=== PATIENT | male | born 1965 | race Caucasian/White ===

== ENCOUNTER 2021-11-21 00:54 | Inpatient (IN) | payer OTHER ==
[2021-11-21] MEDS ORDERED: VERAPAMIL 2.5 MG/ML 2 ML AMP ONE ×2 (01:11→08:16)
[2021-11-21] MEDS ORDERED: IV FLUID CONTINUATION 1,000 ML IV ONE ×2 (01:13→08:30)
[2021-11-21] MEDS ORDERED: NITROGLYCERIN-D5W PMX 50 MG in DEXTROSE/WATER 1 250ML.BAG IV ONE (01:13)
--- NOTE | 2021-11-21 01:15 | P.CRDCN ---
History of Present Illness History of present illness: HISTORY OF PRESENTING ILLNESS This is a pleasant 56-year-old with past medical history significant for diabetes mellitus type 2, family history of mother with coronary artery disease, gout. He states normally is fairly healthy and exercises routinely. He had been feeling well and today started developing intermittent chest discomfort and some shortness breath. He felt this was related to having done a workout and was not that significant and intermittent. Around 10 PM patient had more consistent left arm pain which then radiated to his chest and therefore presented to [facility] was found to have inferior ST elevation. Given prolonged expected transportation, TPA was given. Patient still having chest pain until approximately 10 minutes before arrival and therefore catheterization lab had been activated. Patient denies any similar discomfort in the past. No tobacco. Occasional Alcohol no illicit drugs. Blood pressure on presentation at [facility] was extremely elevated in the 200/100 range however normally in the 130s systolic. DIAGNOSTICS EKG showed sinus rhythm with borderline Q waves inferiorly with ST elevation. REVIEW OF SYSTEMS At the time of my exam: CONSTITUTIONAL: Denies fever or chills. CARDIOVASCULAR: +chest pain, +shortness of breath, no orthopnea, PND or palpitations. RESPIRATORY: Denies cough. GASTROINTESTINAL: Denies abdominal pain, diarrhea, constipation, nausea or vomiting. MUSCULOSKELETAL: Denies myalgias. NEUROLOGIC: Denies numbness, tingling or weakness. ENDOCRINE: Denies fatigue, weight change, polydipsia or polyurina. GENITOURINARY: Denies burning, hematuria or urgency with micturation. HEMATOLOGIC: Denies history of anemia or bleeding. PHYSICAL EXAMINATION Vital signs reviewed. CONSTITUTIONAL: No apparent distress. HEENT: Head is normocephalic. Pupils are equal, round. Sclerae anicteric. Mucous membranes of the mouth are moist. No JVD. No carotid bruit. CHEST EXAMINATION: Lungs are clear to auscultation. No chest wall tenderness is noted on palpation or with deep breathing. HEART EXAMINATION: Regular rate and rhythm. S1, S2 heard. No murmurs, gallops or rub. ABDOMEN: Soft, nontender. Positive bowel sounds. EXTREMITIES: 2+ peripheral pulses, no lower extremity edema and no calf tenderness. NEUROLOGIC EXAMINATION: Patient is awake, alert and oriented x3. ASSESSMENT 1. Inferior ST elevation [place], status post TPA 2. Diabetes mellitus type 2 3. Extreme hypertension on arrival 4. Hyperlipidemia PLAN Patient is status post TPA and improvement in chest pain. Discussed recommendations for heart catheterization and patient is agreeable. Heparin drip, aspirin. Check 2-D echo. Further recommendations to follow.
[2021-11-21] MEDS ORDERED: HEPARIN SODIUM 1,000 UN/ML (10ML VL) ONE ×2 (01:26→08:44)
[2021-11-21] MEDS ORDERED: fentaNYL (PF) 50 MCG/ML 2 ML AMP ONE ×2 (01:26→08:27)
[2021-11-21] MEDS ORDERED: LIDOCAINE 1% INJ 10MG/ML (30 ML VIAL-PF) SQ ONE (01:28)
[2021-11-21] MEDS ORDERED: fentaNYL (PF) 50 MCG/ML 2 ML AMP IV ONE (01:28)
[2021-11-21] MEDS ORDERED: MIDAZOLAM 2 MG/2 ML VIAL IV ONE (01:28)
[2021-11-21] MEDS ORDERED: VERAPAMIL SYRINGE (5 MG/10 ML) INTRAARTER ONE ×2 (01:30→08:36)
[2021-11-21] MEDS: HEPARIN SODIUM 1,000 UN/ML (10ML VL) IV ONE ×4 (01:37→09:10)
--- NOTE | 2021-11-21 01:45 | XR ---
EXAMINATION TYPE: XR chest 1V DATE OF EXAM: 11/21/2021 COMPARISON: NONE HISTORY: Chest pain TECHNIQUE: Single view FINDINGS: Heart and mediastinum are normal. Lungs are clear. Diaphragm is normal. Bony thorax appears normal. IMPRESSION: Normal chest.
[2021-11-21] MEDS ORDERED: hydrALAZINE HCL 20 MG/ML 1 ML VIAL ONE (01:55)
[2021-11-21] MEDS: hydrALAZINE HCL 20 MG/ML 1 ML VIAL IV ONE ×2 (01:56→02:10)
[2021-11-21] MEDS ORDERED: niCARdipine 25 MG/10 ML VIAL ONE (02:03)
[2021-11-21] MEDS ORDERED: TICAGRELOR 90 MG TAB ONE (02:06)
--- NOTE | 2021-11-21 02:10 | ED ---
Chest Pain HPI - General Chief Complaint: Chest Pain Stated Complaint: STEMI Time Seen by Provider: 11/21/21 00:58 Source: EMS Mode of arrival: EMS Limitations: no limitations - History of Present Illness Initial Comments: This patient is a 56-year-old man transferred here from [facility] for cardiology evaluation and treatment. The patient states that he had gone there related to chest pain that had come on around 10 PM tonight. He indicates the pain in the substernal and left chest areas. There is radiation of the pain to left arm. He describes as being tight feeling. No worsening or relieving factors. At the other facility, the patient was reportedly found to have inferior ST elevations. Given the transfer times from the hospital here patient is given TNKase. The patient's EKG showed persistent ST elevations and therefore English Tutor activated. He does note that his pain had some improvement just prior to arrival here. MD Complaint: chest pain -: hour(s) Onset: during rest Pain Location: left chest Pain Radiation: LUE Severity: moderate Quality: tightness Consistency: constant Improves With: nothing Worsens With: nothing Treatments Prior to Arrival: aspirin, other - Related Data Allergies Allergy/AdvReac Type Severity Reaction Status Date / Time Penicillins Allergy Unknown Unknown Verified 11/21/21 01:48 Review of Systems ROS Statement: Those systems with pertinent positive or pertinent negative responses have been documented in the HPI. ROS Other: All systems not noted in ROS Statement are negative. Constitutional: Denies: fever, chills, weakness Respiratory: Denies: cough, dyspnea, hemoptysis Cardiovascular: Reports: chest pain. Denies: palpitations, orthopnea, edema, syncope Gastrointestinal: Reports: nausea. Denies: abdominal pain, vomiting, diarrhea Genitourinary: Denies: dysuria, hematuria Musculoskeletal: Denies: back pain Skin: Denies: rash Neurological: Denies: headache, weakness, numbness Psychiatric: Denies: anxiety EKG Findings - EKG Results: EKG: interpreted by RAUL, sinus rhythm, normal axis - Dysrhythmias: Sinus rhythms and dysrhythmias: sinus rhythm - HI, Pacemaker, Normal: Myocardial infarction: inferior HI (acute or recent) Past Medical History Additional Past Medical History / Comment(s): Hyperlipidemia History of Any Multi-Drug Resistant Organisms: None Reported Past Psychological History: No Psychological Hx Reported Smoking Status: Never smoker Past Alcohol Use History: Occasional Past Drug Use History: None Reported General Exam Limitations: no limitations General appearance: alert Head exam: Present: atraumatic, normocephalic Eye exam: Present: normal appearance. Absent: scleral icterus, conjunctival injection Neck exam: Present: normal inspection Respiratory exam: Present: normal lung sounds bilaterally. Absent: respiratory distress, wheezes, rales, rhonchi, stridor, chest wall tenderness, accessory muscle use Cardiovascular Exam: Present: regular rate, normal rhythm, normal heart sounds. Absent: systolic murmur, diastolic murmur, rubs, gallop GI/Abdominal exam: Present: soft. Absent: distended, tenderness, guarding, rebound, rigid, mass Extremities exam: Present: normal inspection, normal capillary refill. Absent: pedal edema, calf tenderness Back exam: Present: normal inspection. Absent: CVA tenderness (R), CVA tenderness (L) Neurological exam: Present: alert Skin exam: Present: warm, dry, intact, normal color. Absent: rash Course Vital Signs 11/21/21 01:38 Temperature 98 F Pulse Rate 88 Respiratory 20 Rate Blood Pressure 179/100 O2 Sat by Pulse 96 Oximetry Procedures - [place] Protocol (Time Out) Patient Identification (2 identifiers required): Arm Band, Name Patient/Legal Feeder Catcher Tobacco has Confirmed: Identity, Procedure, Consent Site Marked: Yes Critical Care Time Critical Care Time: Yes (30 minutes) Disposition Clinical Impression: ST elevation myocardial infarction (STEMI) Disposition: ADMITTED IP TO THIS HOSP Condition: Serious Is patient prescribed a controlled substance at d/c from ED?: No
[2021-11-21] MEDS ORDERED: IOPAMIDOL-370 125ML BTL INJ ONE ×2 (02:11→09:14)
[2021-11-21] MEDS ORDERED: TICAGRELOR 90 MG TAB PO ONE (02:11)
[2021-11-21] MEDS ORDERED: HEPARIN SODIUM 1,000 UN/ML (10ML VL) IV ONE ×2 (02:16→07:41)
[2021-11-21] MEDS ORDERED: ATROPINE SULFATE 0.1 MG/ML 10ML SYRINGE IV PRN (02:24)
[2021-11-21] MEDS ORDERED: RX INFO: IV CONTRAST WAS GIVEN 1 EACH MISC MISCELLANE PRN (02:24)
[2021-11-21] MEDS ORDERED: MAG HYDROX/AL HYDROX/SIMETH 30 ML CUP PO PRN (02:24)
[2021-11-21] MEDS ORDERED: ZOLPIDEM 5 MG TAB PO PRN (02:24)
--- NOTE | 2021-11-21 02:24 | P.PRCINT ---
Percutaneous Coronary Int. - Percutaneous Coronary Intervention Percutaneous Coronary Intervention: PROCEDURES PERFORMED: Left heart catheterization, bilateral coronary angiography, PCI proximal to mid RCA with overlapping 3.5 x 30 mm and 3.5 x 15 mm Xience CHUCHO, post dilated with a 4.0 NC balloon INDICATION: STEMI HISTORY: Patient is a pleasant 56-year-old male with history of diabetes mellitus type 2 who presented with chest pain to [facility] and was found to have inferior ST elevation. Given anticipated prolonged transportation TPA was given. By time he presented to ER he had improvement in chest pain with some Q waves inferiorly. Heart catheterization was recommended. CONSENT:I have discussed the risks, benefits and alternative therapies for the above-mentioned procedure and for both sedation/analgesia as well as necessary blood product administration, if indicated, as they pertain to this patient. The patient has indicated understanding and acceptance of the risks and procedures discussed. PROCEDURE: After the risks, benefits and alternatives of the above mentioned procedure explained in detail with the patient, informed consent was obtained. Patient was taken to the catheterization lab and prepped and draped in usual fashion. 1% lidocaine was used to anesthetize the right radial artery. A 6- [place] sheath was placed in the right radial artery using modified Seldinger technique. Left coronary angiography was performed with a 5-[place] JL 3.5 catheter and right coronary angiography was performed with a 5-[place] JR5 catheter in various views. A 5-[place] FR5 catheter was inserted into the left ventricle and pressure measurements were obtained. The decision was made to perform PCI of the RCA. A 6-[place] AL 0.75 guide was used to engage the RCA. A 0.014 BMW wire was attempted to be advanced however some difficulty and therefore a 0.014 was per wire was advanced into the distal RCA. Predilation was performed with a 2.5 x 12 mm balloon. Next a 3.5 x 15 mm Xience CHUCHO was placed in the mid RCA. There is diffuse disease of the proximal to mid RCA as well and therefore an additional 3.5 x 38 mm Xience CHUCHO was used to cover the entire area. Both stents were postdilated with a 4.0 x 12 mm Xience CHUCHO. Final angiograms were performed. Preintervention there is 99% stenosis and KYLE 2 flow and postintervention there was 0% stenosis and KYLE-3 flow. The right radial sheath was removed and a TR band was placed with hemostasis achieved. The patient tolerated the procedure well. Patient was transported back to the post catheterization holding area in stable condition. Conscious Sedation: Patient was monitored under the direct supervision of vision of myself for conscious sedation using Versed and fentanyl for a total duration of 43 minutes HEMODYNAMICS: Aorta: 187/98 LV: 193/14, LVEDP 26mmHg SELECTIVE CORONARY ARTERIOGRAPHY: LEFT MAIN: The left main is a large caliber vessel which bifurcates into the LAD and circumflex. There is no significant stenosis. LEFT ANTERIOR DESCENDING CORONARY ARTERY: LAD is a large caliber vessel which wraps around to the apex. There is diffuse mild 20-30% stenosis. There is a moderate to large caliber diagonal 1 branch. LEFT CIRCUMFLEX CORONARY ARTERY: Left circumflex is a moderate caliber vessel with diffuse 20-30% stenosis. RIGHT CORONARY ARTERY: The right coronary artery is a large caliber vessel which gives off a PDA and PLV branch and is the dominant vessel. There is diffuse proximal 75% stenosis, proximal mid 40% and a mid RCA focal 99% stenosis with thrombus burden. FINAL IMPRESSION: 1. CAD as described above including 20-30% LAD, 20-30% circumflex and RCA 99% stenosis 2. S/p PCI proximal to mid RCA with overlapping 3.5 x 30 mm and 3.5 x 15 mm Xience CHUCHO, post dilated with a 4.0 NC balloon 3. Elevated left sided filling pressures PLAN: 1. Aggressive risk factor modification per most recent ACC/AHA guidelines. 2. Continue dual antiplatelets for 12 months with aspirin and Brillinta.
[2021-11-21] MEDS ORDERED: hydrALAZINE HCL 20 MG/ML 1 ML VIAL IVP PRN (02:32)
[2021-11-21 02:45] LABS: Glucose,Whole Blood 207 mg/dL (70-110)
[2021-11-21] MEDS: SODIUM CHLORIDE 0.9% 1,000 ML in EMPTY BAG 1 BAG IV SCH ×2 (03:28→08:05)
[2021-11-21] MEDS: NITROGLYCERIN SL TABS 0.4 MG TAB SUBLINGUAL PRN ×2 (07:06→07:19)
[2021-11-21] MEDS ORDERED: HEPARIN SODIUM 1,000 UN/ML (10ML VL) IVP STA (07:07)
[2021-11-21] MEDS ORDERED: ONDANSETRON 4 MG/2 ML VIAL IVP PRN (07:15)
[2021-11-21] MEDS ORDERED: HEPARIN SODIUM 1,000 UN/ML (10ML VL) IV PRN (07:41)
--- NOTE | 2021-11-21 07:42 | P.PN ---
Subjective HISTORY OF PRESENTING ILLNESS This is a pleasant 56-year-old with past medical history significant for diabetes mellitus type 2, family history of mother with coronary artery disease, gout. He states normally is fairly healthy and exercises routinely. He had been feeling well and today started developing intermittent chest discomfort and some shortness breath. He felt this was related to having done a workout and was not that significant and intermittent. Around 10 PM patient had more consistent left arm pain which then radiated to his chest and therefore presented to [facility] was found to have inferior ST elevation. Given prolonged expected transportation, TPA was given. Patient still having chest pain until approximately 10 minutes before arrival and therefore catheterization lab had been activated. Patient denies any similar discomfort in the past. No tobacco. Occasional Alcohol no illicit drugs. Blood pressure on presentation at [facility] was extremely elevated in the 200/100 range however normally in the 130s systolic. 11/21 Underwent heart catheterization with stenting of the RCA. He was feeling fine until approximately 7 AM when he started having more arm discomfort and chest pain similar to prior. Improved with nitro. Some nausea. PHYSICAL EXAMINATION Vital signs reviewed. CONSTITUTIONAL: No apparent distress. HEENT: Head is normocephalic. Pupils are equal, round. Sclerae anicteric. Mucous membranes of the mouth are moist. No JVD. No carotid bruit. CHEST EXAMINATION: Lungs are clear to auscultation. No chest wall tenderness is noted on palpation or with deep breathing. HEART EXAMINATION: Regular rate and rhythm. S1, S2 heard. No murmurs, gallops or rub. ABDOMEN: Soft, nontender. Positive bowel sounds. EXTREMITIES: 2+ peripheral pulses, no lower extremity edema and no calf tenderness. NEUROLOGIC EXAMINATION: Patient is awake, alert and oriented x3. ASSESSMENT 1. Inferior ST elevation [place], status post TPA 2. Diabetes mellitus type 2 3. Extreme hypertension on arrival 4. Hyperlipidemia 5. Recurrent chest pain after stenting concerning for stent thrombosis PLAN Patient having more chest pain this morning. Concern of possible stent thrombosis and therefore discussed heart catheterization. We will place patient on a heparin drip as well as nitro drip. Check 2-D echo. Further recommendations to follow. Objective - Vital Signs Vital signs: Vital Signs Temp 98.1 F 11/21/21 02:50 Pulse 105 H 11/21/21 07:15 Resp 10 L 11/21/21 07:15 BP 121/91 11/21/21 07:15 Pulse Ox 93 L 11/21/21 07:15 FiO2 Intake & Output 11/20/21 11/21/21 11/21/21 18:59 06:59 18:59 Intake Total 310 Output Total 925 200 Balance -615 -200 Weight 94.8 kg Intake: IV 310 Output: Urine 925 Emesis 200 Other: Voiding Method Urinal # Voids 0 - Labs Labs: Abnormal Lab Results - Last 24 Hours (Table) 11/21/21 Range/Units 02:43 POC Glucose (mg/dL) 207 H (70-110) mg/dL
[2021-11-21] MEDS: NITROGLYCERIN-D5W PMX 50 MG in DEXTROSE/WATER 1 250ML.BAG IV SCH (07:53)
[2021-11-21] MEDS: HEPARIN SOD,PORK IN 0.45% NACL 25,000 UNIT in 0.45% NACL 1 250ML.BAG IV SCH ×2 (07:54→23:01)
[2021-11-21] MEDS: ASPIRIN 81 MG PO SCH (08:05)
[2021-11-21] MEDS: lisinopriL 10 MG TAB PO SCH (08:13)
[2021-11-21] MEDS: TICAGRELOR 90 MG TAB PO SCH ×2 (08:13→20:09)
[2021-11-21] MEDS: METOPROLOL TARTRATE 25 MG TAB PO SCH ×2 (08:13→20:09)
[2021-11-21] MEDS ORDERED: fentaNYL (PF) 50 MCG/ML 2 ML AMP IVP ONE (08:35)
[2021-11-21] MEDS ORDERED: MIDAZOLAM 2 MG/2 ML VIAL IVP ONE (08:35)
[2021-11-21] MEDS ORDERED: LIDOCAINE 1% INJ 10MG/ML (5 ML VIAL-PF) SQ ONE (08:36)
[2021-11-21] MEDS: HEPARIN SODIUM 1,000 UN/ML (10ML VL) IVP ONE ×2 (08:46→08:59)
--- NOTE | 2021-11-21 09:02 | P.EN ---
I came to see the patient and he was taken to the cardiac cath again this morning. We will follow up
[2021-11-21] MEDS ORDERED: TIROFIBAN 12.5MG-250ML NS 250 ML IV ONE (09:14)
[2021-11-21] MEDS ORDERED: TIROFIBAN BOLUS 12.5MG/250 ML BAG IV ONE (09:15)
[2021-11-21] MEDS: TIROFIBAN 12.5MG-250ML NS 250 ML IV SCH (09:40)
[2021-11-21 10:02] LABS: Partial Thromboplastin Time 62.5 sec (22.0-30.0)
[2021-11-21 10:06] LABS: Basophils % (A) 0 %; Eosinophils % (A) 0 %; HCT 46.3 % (39.0-53.0); HGB 15.6 gm/dL (13.0-17.5); Lymphocytes # (A) 1.4 k/uL (1.0-4.8); Lymphocytes % (A) 9 %; MCH 29.2 pg (25.0-35.0); MCHC 33.7 g/dL (31.0-37.0); MCV 86.5 fL (80.0-100.0); Mean Platelet Volume 7.9; Monocytes # (A) 0.6 k/uL (0-1.0); Monocytes % (A) 4 %; Neutrophils # (A) 12.8 k/uL (1.3-7.7); Neutrophils % (A) 86 %; Platelet Count 303 k/uL (150-450); RBC 5.35 m/uL (4.30-5.90); RDW 12.8 % (11.5-15.5); WBC 14.9 k/uL (3.8-10.6)
[2021-11-21 10:10] LABS: Potassium 4.1 mmol/L (3.5-5.1)
[2021-11-21 11:34] LABS: Glucose,Whole Blood 160 mg/dL (70-110)
--- NOTE | 2021-11-21 13:09 | P.HPIM ---
History of Present Illness This is a pleasant 56 years old male was transferred from [facility] for chest pain. Patient presents because of chest pain, the left side radiating to the left neck felt like pressure with no dyspnea or cough and Patient was 10/10 in severity, currently is is down to 3/10. He denies any GI or urinary symptoms. No numbness or weakness or headache. He denies smoking, alcohol or illicit drugs. He states is diabetic and takes metformin 500 mg twice a day and colchicine for gout. Patient Vitas looks stable Chest x-ray done here showing normal chest patient evaluated by manager sales training and underwent emergent cardiac cath showing 20-30% stenosis of the LAD, 20-30% stenosis of the circumflex and 99% RCA stenosis. Patient is status post PCI to the proximal to mid RCA. He is currently on aspirin and brillinta . Review of Systems Review of systems CONSTITUTIONAL: No fever, no malaise, no fatigue. HEENT: No recent visual problems or hearing problems. Denied any sore throat. CARDIOVASCULAR: No orthopnea, PND, no palpitations, no syncope. PULMONARY: No shortness of breath, no cough, no hemoptysis. GASTROINTESTINAL: No diarrhea, no nausea, no vomiting, no abdominal pain. No rmoactive bowel sounds. NEUROLOGICAL: No headaches, no weakness, no numbness. HEMATOLOGICAL: Denies any bleeding or petechiae. GENITOURINARY: Denies any burning micturition, frequency, or urgency. MUSCULOSKELETAL/RHEUMATOLOGICAL: Denies any joint pain, swelling, or any muscle pain. ENDOCRINE: Denies any polyuria or polydipsia. Past Medical History Past Medical History: Diabetes Mellitus Additional Past Medical History / Comment(s): Hyperlipidemia History of Any Multi-Drug Resistant Organisms: None Reported Past Surgical History: No Surgical Hx Reported Past Anesthesia/Blood Transfusion Reactions: No Reported Reaction Past Psychological History: No Psychological Hx Reported Smoking Status: Former smoker Past Alcohol Use History: Occasional Past Drug Use History: None Reported Medications and Allergies Home Medications Medication Instructions Recorded Confirmed Type Ascorbic Acid [Vitamin C] 500 mg PO DAILY 11/21/21 11/21/21 History Cetirizine HCl [Zyrtec] 10 mg PO DAILY 11/21/21 11/21/21 History Cholecalciferol (Vitamin D3) 125 mcg PO DAILY 11/21/21 11/21/21 History [Vitamin D3 (125 MCG = 5,000 IU)] Colchicin-Probenecid 0.5-500Mg 1 tab PO DAILY 11/21/21 11/21/21 History [Colbenemid] Multivitamins, Thera [Multivitamin 1 tab PO DAILY 11/21/21 11/21/21 History (formulary)] Testosterone Cypionate 150 mg IM FR 11/21/21 11/21/21 History [Depo-Testosterone] metFORMIN HCL ER [Glucophage XR] 1,000 mg PO DAILY 11/21/21 11/21/21 History Allergies Allergy/AdvReac Type Severity Reaction Status Date / Time Penicillins Allergy Unknown Unknown Verified 11/21/21 06:53 Physical Exam Vitals: Vital Signs Temp Pulse Pulse Resp BP Pulse Ox 11/21/21 11:00 84 18 94 L 11/21/21 10:30 81 26 H 97 11/21/21 10:00 75 10 L 95 11/21/21 09:30 77 16 148/80 94 L 11/21/21 08:15 88 20 141/84 96 11/21/21 08:00 79 23 130/83 96 11/21/21 07:45 81 13 141/88 96 11/21/21 07:30 96 21 142/83 94 L 11/21/21 07:15 105 H 10 L 121/91 93 L 11/21/21 07:00 82 18 156/86 95 11/21/21 06:45 82 15 93 L 11/21/21 06:30 80 17 94 L 11/21/21 06:15 81 16 94 L 11/21/21 06:00 81 11 L 133/75 94 L 11/21/21 05:45 79 19 94 L 11/21/21 05:30 81 20 93 L 11/21/21 05:15 82 16 94 L 11/21/21 05:00 80 16 139/75 92 L 11/21/21 04:45 81 19 94 L 11/21/21 04:30 81 17 93 L 11/21/21 04:15 84 15 94 L 11/21/21 04:00 80 16 129/80 93 L 11/21/21 03:45 86 12 94 L 11/21/21 03:40 86 11/21/21 03:30 88 17 92 L 11/21/21 03:20 90 19 93 L 11/21/21 03:10 92 22 94 L 11/21/21 03:00 92 10 L 148/73 94 L 11/21/21 02:50 98.1 F 101 H 19 96 11/21/21 01:38 98 F 88 20 179/100 96 Intake and Output 11/20/21 11/21/21 11/21/21 22:59 06:59 14:59 Intake Total 310 1085 Output Total 925 750 Balance -615 335 Intake: IV 310 785 Sodium Chloride 0.9% 1, 380 000 ml In Empty Bag 1 bag @ 1 ML/KG/HR 83.915 mls/ hr IV .[id number] [facility] Rx#: [id number] Oral 300 Output: Urine 925 350 Emesis 400 Other: Voiding Method Urinal Urinal # Voids 0 Weight 94.8 kg -GENERAL: The patient is alert and oriented x3, not in any acute distress. Obese HEENT: Pupils are round and equally reacting to light. EOMI. No scleral icterus. No conjunctival pallor. Normocephalic, atraumatic. No pharyngeal erythema. No thyromegaly. CARDIOVASCULAR: S1 and S2 present. No murmurs, rubs, or gallops. PULMONARY: Chest is clear to auscultation, no wheezing or crackles. ABDOMEN: Soft, nontender, nondistended, normoactive bowel sounds. No palpable organomegaly. MUSCULOSKELETAL: No joint swelling or deformity. EXTREMITIES: No cyanosis, clubbing, or pedal edema. NEUROLOGICAL: Gross neurological examination did not reveal any focal deficits. SKIN: No rashes. no petechiae. Results CBC & Chem 7: 11/21/21 08:02 11/21/21 08:05 Labs: Abnormal Lab Results - Last 24 Hours (Table) 11/21/21 11/21/21 11/21/21 Range/Units 02:43 07:06 07:06 WBC (3.8-10.6) k/uL Neutrophils # (1.3-7.7) k/uL APTT (22.0-30.0) sec BUN (9-20) mg/dL Glucose (74-99) mg/dL POC Glucose (mg/dL) 207 H (70-110) mg/dL Hemoglobin A1c 6.8 H (0.0-6.0) % Troponin I 236.000 H* (0.000-0.034) ng/mL 11/21/21 11/21/21 11/21/21 Range/Units 08:02 08:02 08:05 WBC 14.9 H (3.8-10.6) k/uL Neutrophils # 12.8 H (1.3-7.7) k/uL APTT 62.5 H (22.0-30.0) sec BUN 24 H (9-20) mg/dL Glucose 202 H (74-99) mg/dL POC Glucose (mg/dL) (70-110) mg/dL Hemoglobin A1c (0.0-6.0) % Troponin I (0.000-0.034) ng/mL 11/21/21 Range/Units 11:32 WBC (3.8-10.6) k/uL Neutrophils # (1.3-7.7) k/uL APTT (22.0-30.0) sec BUN (9-20) mg/dL Glucose (74-99) mg/dL POC Glucose (mg/dL) 160 H (70-110) mg/dL Hemoglobin A1c (0.0-6.0) % Troponin I (0.000-0.034) ng/mL Thrombosis Risk Factor Assmnt - Choose All That Apply Any of the Below Risk Factors Present?: Yes Each Factor Represents 1 point: Acute NE, Age 41-60 years Thrombosis Risk Factor Assessment Total Risk Factor Score: 2 Thrombosis Risk Factor Assessment Level: Low Risk Assessment and Plan Assessment: STEMI, status post PCI to the right coronary artery area History of gout diabetes mellitus obesity with BMI of 34.8 Plan: this is a pleasant 56 years old male status post PCI to the RCA Continue with dual antiplatelet therapy Continue with heparin drip Continue with nitroglycerin drip Cardiology consult on the case Check hemoglobin A1c and continue with insulin sliding scale Labs and medication were reviewed.. Continue same treatment. Continue with symptomatic treatment. Resume home medication. Monitor lytes and vitals. DVT and GI prophylaxis. Further recommendations as per clinical course of the patient DVT prophylaxis: Subcutaneous heparin GI Prophylaxis: Pepcid
[2021-11-21 14:45] VITALS: BMI 34.7
[2021-11-21 16:37] LABS: Glucose,Whole Blood 179 mg/dL (70-110)
--- NOTE | 2021-11-21 18:14 | P.PRCINT ---
Percutaneous Coronary Int. - Percutaneous Coronary Intervention Percutaneous Coronary Intervention: PROCEDURES PERFORMED: Bilateral coronary angiography, IVUS RCA, PTCA mid to distal RCA stent with a 4.0 x 12mm NC balloon INDICATION: STEMI, recent PCI with concern of stent thrombosis HISTORY: Patient is a pleasant 56-year-old male with history of diabetes mellitus type 2 who presented with chest pain and was found to have STEMI and underwent PCI of RCA earlier this morning. He had been doing well however then began having repeat chest pain although less intense. Therefore heparin was given and nitro with some improvement however still 1/10 chest pain. Therefore recommended proceed with angiography. CONSENT:I have discussed the risks, benefits and alternative therapies for the above-mentioned procedure and for both sedation/analgesia as well as necessary blood product administration, if indicated, as they pertain to this patient. The patient has indicated understanding and acceptance of the risks and procedures discussed. PROCEDURE: After the risks, benefits and alternatives of the above mentioned procedure explained in detail with the patient, informed consent was obtained. Patient was taken to the catheterization lab and prepped and draped in usual fashion. 1% lidocaine was used to anesthetize the left radial artery. A 6- Singaporean sheath was placed in the left radial artery using modified Seldinger technique. Left coronary angiography was performed with a 5-Singaporean JL 3.5 catheter. Right coronary angiography was performed with a 6-Singaporean AL 0.75 guide. There was mild haziness of the middle to distal RCA stent and therefore a 0.014 BMW wire was advanced into the distal RCA. IVUS was then performed which showed excellent stent apposition with very small amount of thrombus noted in the mid to distal RCA stent and therefore heparin was given as well as Aggrastat and balloon angioplasty was performed of the mid to distal RCA stent with a 4.0 x 12 mm noncompliant balloon. The wire was removed and final angiograms were performed. The left radial sheath was removed and a TR band was placed with hemostasis achieved. The patient tolerated the procedure well. Patient was transported back to the post catheterization holding area in stable condition. Conscious Sedation: Patient was monitored under the direct supervision of vision of myself for conscious sedation using Versed and fentanyl for a total duration of 43 minutes HEMODYNAMICS: Aorta: 132/78 SELECTIVE CORONARY ARTERIOGRAPHY: LEFT MAIN: The left main is a large caliber vessel which bifurcates into the LAD and circumflex. There is no significant stenosis. LEFT ANTERIOR DESCENDING CORONARY ARTERY: LAD is a large caliber vessel which wraps around to the apex. There is diffuse mild 20-30% stenosis. There is a moderate to large caliber diagonal 1 branch. LEFT CIRCUMFLEX CORONARY ARTERY: Left circumflex is a moderate caliber vessel with diffuse 20-30% stenosis. RIGHT CORONARY ARTERY: The right coronary artery is a large caliber vessel which gives off a PDA and PLV branch and is the dominant vessel. There is a proximal to mid RCA stent which is widely patent with mild lucency of the mid to distal stent. FINAL IMPRESSION: 1. CAD as described above including 20-30% LAD, 20-30% circumflex. Patent RCA stent with only mild lucency at the mid to distal RCA stent. 2. S/p PTCA of mid to distal RCA stent with consideration of stent thrombosis which improved after nitro and Heparin. PLAN: 1. Aggressive risk factor modification per most recent ACC/AHA guidelines. 2. Continue dual antiplatelets for 12 months with aspirin and Brillinta. 3. Mild lucency concerning for stent thrombosis with improvement after nitro and heparin. IVUS showed mild echodensity consistent with thrombus. Therefore treat with heparin for 24 hrs and additionally Aggrastat for 12 hours. Suspect related to medications not fully absorbed and heavy thrombus burden as opposed to stent failure with excellent stent apposition.
[2021-11-21] MEDS ORDERED: DEXTROSE 50% SYRINGE 50 ML IVP PRN ×2 (18:35)
[2021-11-21 19:55] LABS: Glucose,Whole Blood 202 mg/dL (70-110)
[2021-11-21] MEDS: ATORVASTATIN 80 MG TAB PO SCH (20:09)
[2021-11-21] MEDS: INSULIN ASPART (NovoLOG) 100 UNIT/ML VIAL SQ SCH (20:09)
[2021-11-22] MEDS: TIROFIBAN 12.5MG-250ML NS 250 ML IV SCH (00:55)
[2021-11-22 01:48] LABS: Glucose,Whole Blood 186 mg/dL (70-110)
[2021-11-22] MEDS: SODIUM CHLORIDE 0.9% 1,000 ML in EMPTY BAG 1 BAG IV SCH ×2 (02:31→04:24)
[2021-11-22 06:16] LABS: Glucose,Whole Blood 166 mg/dL (70-110)
[2021-11-22] MEDS: INSULIN ASPART (NovoLOG) 100 UNIT/ML VIAL SQ SCH ×4 (06:51→20:24)
[2021-11-22 07:09] LABS: Basophils % (A) 0 %; Eosinophils # (A) 0.4 k/uL (0-0.7); Eosinophils % (A) 4 %; HCT 41.1 % (39.0-53.0); HGB 13.4 gm/dL (13.0-17.5); Lymphocytes # (A) 2.2 k/uL (1.0-4.8); Lymphocytes % (A) 18 %; MCH 28.5 pg (25.0-35.0); MCHC 32.5 g/dL (31.0-37.0); MCV 87.7 fL (80.0-100.0); Mean Platelet Volume 7.2; Monocytes # (A) 0.8 k/uL (0-1.0); Monocytes % (A) 7 %; Neutrophils # (A) 8.7 k/uL (1.3-7.7); Neutrophils % (A) 70 %; Platelet Count 260 k/uL (150-450); RBC 4.69 m/uL (4.30-5.90); RDW 12.9 % (11.5-15.5); WBC 12.3 k/uL (3.8-10.6)
[2021-11-22 07:36] LABS: Calcium 8.2 mg/dL (8.4-10.2); Magnesium 1.9 mg/dL (1.6-2.3); Potassium 4.1 mmol/L (3.5-5.1)
[2021-11-22] MEDS: NITROGLYCERIN-D5W PMX 50 MG in DEXTROSE/WATER 1 250ML.BAG IV SCH (09:26)
[2021-11-22] MEDS: ASPIRIN 81 MG PO SCH (09:35)
[2021-11-22] MEDS: TICAGRELOR 90 MG TAB PO SCH ×2 (09:35→20:26)
[2021-11-22] MEDS: METOPROLOL TARTRATE 25 MG TAB PO SCH ×2 (09:35→20:24)
[2021-11-22] MEDS: lisinopriL 10 MG TAB PO SCH (09:35)
--- NOTE | 2021-11-22 11:09 | P.PN ---
Subjective HISTORY OF PRESENTING ILLNESS This is a pleasant 56-year-old with past medical history significant for diabetes mellitus type 2, family history of mother with coronary artery disease, gout. He states normally is fairly healthy and exercises routinely. He had been feeling well and today started developing intermittent chest discomfort and some shortness breath. He felt this was related to having done a workout and was not that significant and intermittent. Around 10 PM patient had more consistent left arm pain which then radiated to his chest and therefore presented to [facility] was found to have inferior ST elevation. Given prolonged expected transportation, TPA was given. Patient still having chest pain until approximately 10 minutes before arrival and therefore catheterization lab had been activated. Patient denies any similar discomfort in the past. No tobacco. Occasional Alcohol no illicit drugs. Blood pressure on presentation at [facility] was extremely elevated in the 200/100 range however normally in the 130s systolic. 11/21 Underwent heart catheterization with stenting of the RCA. He was feeling fine until approximately 7 AM when he started having more arm discomfort and chest pain similar to prior. Improved with nitro. Some nausea. 11/22 Patient seen and examined. Patient did have more chest pain yesterday and was taken to the catheterization lab with angiography showing no significant issues however did appear concern of possible stent thrombosis and therefore was treated with balloon angioplasty as well as heparin drip and Aggrastat drip. The heparin drip is being stopped this morning and Aggrastat was run for 12 hours. He denies any further chest pain or pressure. Echo is pending. PHYSICAL EXAMINATION Vital signs reviewed. CONSTITUTIONAL: No apparent distress. HEENT: Head is normocephalic. Pupils are equal, round. Sclerae anicteric. Mucous membranes of the mouth are moist. No JVD. No carotid bruit. CHEST EXAMINATION: Lungs are clear to auscultation. No chest wall tenderness is noted on palpation or with deep breathing. HEART EXAMINATION: Regular rate and rhythm. S1, S2 heard. No murmurs, gallops or rub. ABDOMEN: Soft, nontender. Positive bowel sounds. EXTREMITIES: 2+ peripheral pulses, no lower extremity edema and no calf tenderness. NEUROLOGIC EXAMINATION: Patient is awake, alert and oriented x3. ASSESSMENT 1. Inferior ST elevation [place], status post TPA and PCI RCA 2. Diabetes mellitus type 2 3. Extreme hypertension on arrival, improved 4. Hyperlipidemia PLAN Await 2-D echo. Stop heparin drip. Continue dual antiplatelets. Hopeful discharge in 24 hours if remains stable. Evaluate for any cardiomyopathy with echocardiogram. Objective - Vital Signs Vital signs: Vital Signs Temp 98.1 F 11/22/21 08:00 Pulse 64 11/22/21 11:00 Resp 17 11/22/21 11:00 BP 106/70 11/22/21 11:00 Pulse Ox 94 L 11/22/21 11:00 FiO2 Intake & Output 11/21/21 11/22/21 11/22/21 18:59 06:59 18:59 Intake Total 2324.567 1258.563 418.325 Output Total 1850 1200 0 Balance 474.567 58.563 418.325 Weight 94.8 kg 90.6 kg Intake: IV 1450 1140 380 Sodium Chloride 0.9% 1, 1045 1140 380 000 ml In Empty Bag 1 bag @ 1 ML/KG/HR 83.915 mls/ hr IV .[id number] HEATH Rx#: [id number] Intake, IV Titration 124.567 118.563 38.325 Amount Heparin Sod,Pork in 0.45% 124.567 118.563 NaCl 25,000 unit In 0.45 % NaCl 1 250ml.bag @ 18 UNITS/KG/HR 17.064 mls/hr IV .[id number] HEATH Rx#: [id number] Nitroglycerin-D5w Pmx 50 38.325 mg In Dextrose/Water 1 250ml.bag @ 5 MCG/MIN 1.5 mls/hr IV .Q24H HEATH Rx#: [id number] Oral 750 Output: Urine 1450 1200 0 Emesis 400 Other: Voiding Method Urinal Urinal Urinal # Voids 0 0 - Labs CBC & Chem 7: 11/22/21 06:14 11/22/21 06:14 Labs: Abnormal Lab Results - Last 24 Hours (Table) 11/21/21 11/21/21 11/21/21 Range/Units 11:32 14:29 16:35 WBC (3.8-10.6) k/uL Neutrophils # (1.3-7.7) k/uL APTT 83.6 H (22.0-30.0) sec Sodium (137-145) mmol/L Glucose (74-99) mg/dL POC Glucose (mg/dL) 160 H 179 H (70-110) mg/dL Calcium (8.4-10.2) mg/dL 11/21/21 11/21/21 11/22/21 Range/Units 19:53 22:13 01:46 WBC (3.8-10.6) k/uL Neutrophils # (1.3-7.7) k/uL APTT 40.7 H (22.0-30.0) sec Sodium (137-145) mmol/L Glucose (74-99) mg/dL POC Glucose (mg/dL) 202 H 186 H (70-110) mg/dL Calcium (8.4-10.2) mg/dL 11/22/21 11/22/21 11/22/21 Range/Units 06:14 06:14 06:14 WBC 12.3 H (3.8-10.6) k/uL Neutrophils # 8.7 H (1.3-7.7) k/uL APTT 59.5 H (22.0-30.0) sec Sodium 136 L (137-145) mmol/L Glucose 172 H (74-99) mg/dL POC Glucose (mg/dL) (70-110) mg/dL Calcium 8.2 L (8.4-10.2) mg/dL 11/22/21 Range/Units 06:15 WBC (3.8-10.6) k/uL Neutrophils # (1.3-7.7) k/uL APTT (22.0-30.0) sec Sodium (137-145) mmol/L Glucose (74-99) mg/dL POC Glucose (mg/dL) 166 H (70-110) mg/dL Calcium (8.4-10.2) mg/dL
[2021-11-22] MEDS ORDERED: APIXABAN 5 MG TAB PO SCH (11:30)
[2021-11-22 11:35] LABS: Glucose,Whole Blood 151 mg/dL (70-110)
--- NOTE | 2021-11-22 11:38 | P.PN ---
Subjective This is a pleasant 74 years old male with past medical history of atrial fibrillation, anemia, hyponatremia, leg weakness, hypertension, hyperlipidemia, osteoarthritis, benign prostatic hypertrophy, psoriasis, chronic back pain, peripheral neuropathy, every day smoker, emphysema although he was not diagnosed with COPD . This patient and records is Dr. Kumar, patient could not remember the name himself Patient came from [facility] for worsening leg swelling. Patient was in this facility 3 times on 10/01, 10/17 and 10/19, for a fall, generalized weakness, and A. fib. Presents with worsening bilateral lower extremity edema, he denies any shortness of breath or chest pain. However he states he is not walking at snf/rehab. As per records from [facility] chronic medical problems include COPD, A. fib, peripheral vascular disease, patient states he had the stent placed into his left leg by Dr. Holm. Cognitive deficits, difficulty walking, history of alcohol abuse and cigarette smoker prior to going to rehab. Used to smoke 6-7 cigarettes per day. Vitas looks stable number patient afebrile, not tachypneic, is mildly hypoxic 91% on room air Labs reviewed, he has hemoglobin of 11.1, rest of CBC and INR are unremarkable. Sodium is 1:30, creatinine 0.5. Liver enzymes elevated. Troponin less than 0.012. ProBNP is slightly elevated at 2330. Chest x-ray: Small bilateral pleural effusions with bibasilar streaky airspace o pacity which may represent atelectasis versus infiltrate appropriate clinical setting, COPD changes Venous Doppler, negative for DVT in both legs. EKG showing atrial fibrillation at [address]-T changes. And emergency room he received aspirin and Lasix Echocardiogram last month showing ejection fraction of 50-55% 11/22/2021 Today patient is doing well, no chest pain or dyspnea. No other complaints. Hemodynamically stable and he tolerates diet well. He was still on heparin drip in the morning which is thought by dental cream maker today. Check echocardiogram Hemoglobin A1c is normal 5.9% Possible discharge in 24-48 hours per Software Developer Mid Level Objective - Vital Signs Vital signs: Vital Signs Temp 98.1 F 11/22/21 08:00 Pulse 64 11/22/21 11:00 Resp 17 11/22/21 11:00 BP 106/70 11/22/21 11:00 Pulse Ox 94 L 11/22/21 11:00 FiO2 Intake & Output 11/21/21 11/22/21 11/22/21 18:59 06:59 18:59 Intake Total 2324.567 1258.563 418.325 Output Total 1850 1200 0 Balance 474.567 58.563 418.325 Weight 94.8 kg 90.6 kg Intake: IV 1450 1140 380 Sodium Chloride 0.9% 1, 1045 1140 380 000 ml In Empty Bag 1 bag @ 1 ML/KG/HR 83.915 mls/ hr IV .[id number] HEATH Rx#: [id number] Intake, IV Titration 124.567 118.563 38.325 Amount Heparin Sod,Pork in 0.45% 124.567 118.563 NaCl 25,000 unit In 0.45 % NaCl 1 250ml.bag @ 18 UNITS/KG/HR 17.064 mls/hr IV .[id number] HEATH Rx#: [id number] Nitroglycerin-D5w Pmx 50 38.325 mg In Dextrose/Water 1 250ml.bag @ 5 MCG/MIN 1.5 mls/hr IV .Q24H HEATH Rx#: [id number] Oral 750 Output: Urine 1450 1200 0 Emesis 400 Other: Voiding Method Urinal Urinal Urinal # Voids 0 0 - Exam -GENERAL: The patient is alert and oriented x3, not in any acute distress. obese HEENT: Pupils are round and equally reacting to light. EOMI. No scleral icterus. No conjunctival pallor. Normocephalic, atraumatic. No pharyngeal erythema. No thyromegaly. CARDIOVASCULAR: S1 and S2 present. No murmurs, rubs, or gallops. PULMONARY: Chest is clear to auscultation, no wheezing or crackles. ABDOMEN: Soft, nontender, nondistended, normoactive bowel sounds. No palpable or ganomegaly. MUSCULOSKELETAL: No joint swelling or deformity. EXTREMITIES: No cyanosis, clubbing, or pedal edema. NEUROLOGICAL: Gross neurological examination did not reveal any focal deficits. SKIN: No rashes. no petechiae. - Labs CBC & Chem 7: 11/22/21 06:14 11/22/21 06:14 Labs: Abnormal Lab Results - Last 24 Hours (Table) 11/21/21 11/21/21 11/21/21 Range/Units 11:32 14:29 16:35 WBC (3.8-10.6) k/uL Neutrophils # (1.3-7.7) k/uL APTT 83.6 H (22.0-30.0) sec Sodium (137-145) mmol/L Glucose (74-99) mg/dL POC Glucose (mg/dL) 160 H 179 H (70-110) mg/dL Calcium (8.4-10.2) mg/dL 11/21/21 11/21/21 11/22/21 Range/Units 19:53 22:13 01:46 WBC (3.8-10.6) k/uL Neutrophils # (1.3-7.7) k/uL APTT 40.7 H (22.0-30.0) sec Sodium (137-145) mmol/L Glucose (74-99) mg/dL POC Glucose (mg/dL) 202 H 186 H (70-110) mg/dL Calcium (8.4-10.2) mg/dL 11/22/21 11/22/21 11/22/21 Range/Units 06:14 06:14 06:14 WBC 12.3 H (3.8-10.6) k/uL Neutrophils # 8.7 H (1.3-7.7) k/uL APTT 59.5 H (22.0-30.0) sec Sodium 136 L (137-145) mmol/L Glucose 172 H (74-99) mg/dL POC Glucose (mg/dL) (70-110) mg/dL Calcium 8.2 L (8.4-10.2) mg/dL 11/22/21 Range/Units 06:15 WBC (3.8-10.6) k/uL Neutrophils # (1.3-7.7) k/uL APTT (22.0-30.0) sec Sodium (137-145) mmol/L Glucose (74-99) mg/dL POC Glucose (mg/dL) 166 H (70-110) mg/dL Calcium (8.4-10.2) mg/dL Assessment and Plan Assessment: STEMI, status post PCI to the right coronary artery area History of gout diabetes mellitus obesity with BMI of 34.8 Plan: this is a pleasant 56 years old male status post PCI to the RCA Continue with dual antiplatelet therapy Discontinue heparin drip Keep monitoring the patient for a 24 hours prior dental cream maker Cardiology consult on the case Labs and medication were reviewed.. Continue same treatment. Continue with symptomatic treatment. Resume home medication. Monitor lytes and vitals. DVT and GI prophylaxis. Further recommendations as per clinical course of the patient DVT prophylaxis: Subcutaneous heparin GI Prophylaxis: Pepcid
[2021-11-22 16:39] LABS: Glucose,Whole Blood 145 mg/dL (70-110)
[2021-11-22 20:20] LABS: Glucose,Whole Blood 153 mg/dL (70-110)
[2021-11-22] MEDS: ATORVASTATIN 80 MG TAB PO SCH (20:24)
[2021-11-23] MEDS: SODIUM CHLORIDE 0.9% 1,000 ML in EMPTY BAG 1 BAG IV SCH (05:07)
[2021-11-23 06:27] LABS: Glucose,Whole Blood 172 mg/dL (70-110)
[2021-11-23] MEDS: INSULIN ASPART (NovoLOG) 100 UNIT/ML VIAL SQ SCH ×2 (06:35→12:34)
[2021-11-23] MEDS: METOPROLOL TARTRATE 25 MG TAB PO SCH (07:33)
[2021-11-23] MEDS: lisinopriL 10 MG TAB PO SCH (07:33)
[2021-11-23] MEDS: ASPIRIN 81 MG PO SCH (07:33)
[2021-11-23] MEDS: TICAGRELOR 90 MG TAB PO SCH (07:33)
[2021-11-23 07:39] VITALS: RESP 16; TEMP 98.3
--- NOTE | 2021-11-23 08:18 | P.PN ---
Subjective HISTORY OF PRESENTING ILLNESS This is a pleasant 56-year-old with past medical history significant for diabetes mellitus type 2, family history of mother with coronary artery disease, gout. He states normally is fairly healthy and exercises routinely. He had been feeling well and today started developing intermittent chest discomfort and some shortness breath. He felt this was related to having done a workout and was not that significant and intermittent. Around 10 PM patient had more consistent left arm pain which then radiated to his chest and therefore presented to [facility] was found to have inferior ST elevation. Given prolonged expected transportation, TPA was given. Patient still having chest pain until approximately 10 minutes before arrival and therefore catheterization lab had been activated. Patient denies any similar discomfort in the past. No tobacco. Occasional Alcohol no illicit drugs. Blood pressure on presentation at [facility] was extremely elevated in the 200/100 range however normally in the 130s systolic. 11/21 Underwent heart catheterization with stenting of the RCA. He was feeling fine until approximately 7 AM when he started having more arm discomfort and chest pain similar to prior. Improved with nitro. Some nausea. 11/22 Patient seen and examined. Patient did have more chest pain yesterday and was taken to the catheterization lab with angiography showing no significant issues however did appear concern of possible stent thrombosis and therefore was treated with balloon angioplasty as well as heparin drip and Aggrastat drip. The heparin drip is being stopped this morning and Aggrastat was run for 12 hours. He denies any further chest pain or pressure. Echo is pending. 11/23 Patient seen and examined. Patient having gout flare in his elbow. Usually takes cultures seen and probenecid. Echocardiogram preliminary report showing EF 45-50%. Denies any chest pain. PHYSICAL EXAMINATION Vital signs reviewed. CONSTITUTIONAL: No apparent distress. HEENT: Head is normocephalic. Pupils are equal, round. Sclerae anicteric. Mucous membranes of the mouth are moist. No JVD. No carotid bruit. CHEST EXAMINATION: Lungs are clear to auscultation. No chest wall tenderness is noted on palpation or with deep breathing. HEART EXAMINATION: Regular rate and rhythm. S1, S2 heard. No murmurs, gallops or rub. ABDOMEN: Soft, nontender. Positive bowel sounds. EXTREMITIES: 2+ peripheral pulses, no lower extremity edema and no calf tenderness. NEUROLOGIC EXAMINATION: Patient is awake, alert and oriented x3. ASSESSMENT 1. Inferior ST elevation [place], status post TPA and PCI RCA 2. Diabetes mellitus type 2 3. Extreme hypertension on arrival, improved 4. Hyperlipidemia PLAN Preliminary report of echo shows EF 45-50%. Continue with current regimen. Follow-up in office in 1 week. Objective - Vital Signs Vital signs: Vital Signs Temp 98.3 F 11/23/21 07:30 Pulse 67 11/23/21 07:30 Resp 16 11/23/21 07:30 BP 112/63 11/23/21 07:30 Pulse Ox 98 11/23/21 07:30 FiO2 Intake & Output 11/22/21 11/23/21 11/23/21 18:59 06:59 18:59 Intake Total 720.368 360 Output Total 300 Balance 420.368 360 Weight 90.4 kg Intake: IV 475 Sodium Chloride 0.9% 1, 475 000 ml In Empty Bag 1 bag @ 1 ML/KG/HR 83.915 mls/ hr IV .[id number] HEATH Rx#: [id number] Intake, IV Titration 245.368 Amount Heparin Sod,Pork in 0.45% 207.043 NaCl 25,000 unit In 0.45 % NaCl 1 250ml.bag @ 18 UNITS/KG/HR 17.064 mls/hr IV .[id number] HEATH Rx#: [id number] Nitroglycerin-D5w Pmx 50 38.325 mg In Dextrose/Water 1 250ml.bag @ 5 MCG/MIN 1.5 mls/hr IV .Q24H HEATH Rx#: [id number] Oral 360 Output: Urine 300 Other: Voiding Method Urinal Urinal Urinal # Voids 2 - Labs CBC & Chem 7: 11/22/21 06:14 11/22/21 06:14 Labs: Abnormal Lab Results - Last 24 Hours (Table) 11/22/21 11/22/21 11/22/21 Range/Units 11:34 16:38 20:18 POC Glucose (mg/dL) 151 H 145 H 153 H (70-110) mg/dL 11/23/21 Range/Units 06:25 POC Glucose (mg/dL) 172 H (70-110) mg/dL
[2021-11-23] MEDS ORDERED: COLCHICINE 0.6 MG EACH PO SCH (09:00)
[2021-11-23 12:08] LABS: Glucose,Whole Blood 125 mg/dL (70-110)
--- NOTE | 2021-11-23 12:39 | CA ---
Transthoracic Echo Report Name: Dre Romero Age: 56 Gender: M : 1965 Exam Date: 11/22/2021 13:04 Exam Location: [facility] Ht (in): 65 Wt (lb): 199 Ordering Physician: Len Vigil DO ([email or web address]) Attending/Referring Phys: Grove Worker Diana Lemos RDCS Procedure CPT: Indications: re:STEMI Cardiac Hx: Technical Quality: Good Contrast 1: Total Dose (mL): Contrast 2: Total Dose (mL): MEASUREMENTS (Male / Female) Normal Values 2D ECHO LV Diastolic Diameter PLAX 4.4 cm 4.2 - 5.9 / 3.9 - 5.3 cm LV Systolic Diameter PLAX 3.2 cm IVS Diastolic Thickness 1.6 cm 0.6 - 1.0 / 0.6 - 0.9 cm LVPW Diastolic Thickness 1.4 cm 0.6 - 1.0 / 0.6 - 0.9 cm LV Relative Wall Thickness 0.7 RV Internal Dim ED PLAX 2.9 cm LA Systolic Diameter LX 3.8 cm 3.0 - 4.0 / 2.7 - 3.8 cm LV Diastolic Volume MOD 4C 91.4 cm??? LV Systolic Volume MOD 4C 47.3 cm??? LV Ejection Fraction MOD 4C 48.2 % LV Diastolic Length 4C 8.5 cm LV Systolic Length 4C 7.3 cm LV Diastolic Volume MOD 2C 84.7 cm??? LV Systolic Volume MOD 2C 36.0 cm??? LV Ejection Fraction MOD 2C 57.6 % LV Diastolic Length 2C 8.4 cm LV Systolic Length 2C 6.6 cm LA Volume 45.2 cm??? 18 - 58 / 22 - 52 cm??? M-MODE Aortic Root Diameter MM 3.7 cm MV E Point Septal Separation 0.6 cm AV Cusp Separation MM 2.0 cm DOPPLER AV Peak Velocity 124.1 cm/s AV Peak Gradient 6.2 mmHg MV Area PHT 3.1 cm??? Mitral E Point Velocity 99.7 cm/s Mitral A Point Velocity 97.7 cm/s Mitral E to A Ratio 1.0 MV Deceleration Time 242.4 ms MV E' Velocity 5.8 cm/s Mitral E to MV E' Ratio 17.1 FINDINGS Left Ventricle Left ventricular ejection fraction is estimated at 45-50 %. Left ventricular cavity size normal. Moderate concentric left ventricular hypertrophy. Infero basel wall hypokinesis Right Ventricle Normal right ventricular size and function. No TR unable to estimate the right ventricular systolic pressure. Right Atrium Normal right atrial size. Left Atrium Normal left atrial size. No evidence for an atrial septal defect. Mitral Valve Structurally normal mitral valve. No mitral stenosis, regurgitation or prolapse. Aortic Valve Cannot exclude bicuspid aortic valve Tricuspid Valve Structurally normal tricuspid valve. Pulmonic Valve Trace pulmonic regurgitation. Pericardium Normal pericardium. No pericardial effusion. Aorta Normal size aortic root and proximal ascending aorta. CONCLUSIONS Mildly impaired LV function was EF between 45-50% Cannot exclude bicuspid aortic valve Previewed by: Dr. Heath Mendes MD (Electronically Signed) Final Date: 23 November 2021 12:38
--- NOTE | 2021-11-23 12:39 | P.DS ---
Providers Date of admission: 11/21/21 01:38 Expected date of discharge: 11/23/21 Attending physician: Bladimir Moscoso Consults: 11/21/21 02:25 Consult Physician Routine Consulting Provider: Cardiology Georgi Consult Reason/Comments: Post Interventional patient Do you want consulting provider notified?: Already Contacted 11/21/21 09:09 Consult Physician Routine Consulting Provider: Cardiology Georgi Consult Reason/Comments: Post Interventional Patient Do you want consulting provider notified?: Already Contacted Primary care physician: Physician Nonstaff Hospital Course: 74 years old male with past medical history of atrial fibrillation, anemia, hyponatremia, leg weakness, hypertension, hyperlipidemia, osteoarthritis, benign prostatic hypertrophy, psoriasis, chronic back pain, peripheral neuropathy, every day smoker, emphysema although he was not diagnosed with COPD . This patient and records is Dr. Kumar, patient could not remember the name himself Patient came from [facility] for worsening leg swelling. Patient was in this facility 3 times on 10/01, 10/17 and 10/19, for a fall, generalized weakness, and A. fib. Presents with worsening bilateral lower extremity edema, he denies any shortness of breath or chest pain. However he states he is not walking at jail/rehab. As per records from [facility] chronic medical problems include COPD, A. fib, peripheral vascular disease, patient states he had the stent placed into his left leg by Dr. Holm. Cognitive deficits, difficulty walking, history of alcohol abuse and cigarette smoker prior to going to rehab. Used to smoke 6-7 cigarettes per day. Vitas looks stable number patient afebrile, not tachypneic, is mildly hypoxic 91% on room air Labs reviewed, he has hemoglobin of 11.1, rest of CBC and INR are unremarkable. Sodium is 1:30, creatinine 0.5. Liver enzymes elevated. Troponin less than 0.012. ProBNP is slightly elevated at 2330. Chest x-ray: Small bilateral pleural effusions with bibasilar streaky airspace opacity which may represent atelectasis versus infiltrate appropriate clinical setting, COPD changes Venous Doppler, negative for DVT in both legs. EKG showing atrial fibrillation at [address]-T changes. And emergency room he received aspirin and Lasix Echocardiogram last month showing ejection fraction of 50-55% 11/22/2021 Today patient is doing well, no chest pain or dyspnea. No other complaints. Hemodynamically stable and he tolerates diet well. He was still on heparin drip in the morning which is thought by broadcast checker today. Check echocardiogram Hemoglobin A1c is normal 5.9% Possible discharge in 24-48 hours per Lead Javascript Developer 11/23/2021 CLEARED FOR DC BY CARDIOLOGY Patient Condition at Discharge: Serious Plan - Discharge Summary Discharge Rx Participant: No New Discharge Prescriptions: New Aspirin 81 mg PO DAILY 30 Days #30 tab Colchicine [Colcrys] 0.6 mg PO DAILY 15 Days #15 each Metoprolol Tartrate [Lopressor] 25 mg PO BID 30 Days #60 tab lisinopriL [Zestril] 10 mg PO DAILY 30 Days #30 tab Ticagrelor [Brilinta] 90 mg PO BID 30 Days #60 tab Atorvastatin [Lipitor] 80 mg PO HS 30 Days #30 tab Continue Cholecalciferol (Vitamin D3) [Vitamin D3 (125 MCG = 5,000 IU)] 125 mcg PO DAILY metFORMIN HCL ER [Glucophage XR] 1,000 mg PO DAILY Ascorbic Acid [Vitamin C] 500 mg PO DAILY Testosterone Cypionate [Depo-Testosterone] 150 mg IM FR Multivitamins, Thera [Multivitamin (formulary)] 1 tab PO DAILY Cetirizine HCl [Zyrtec] 10 mg PO DAILY Colchicin-Probenecid 0.5-500Mg [Colbenemid] 1 tab PO DAILY Discharge Medication List Ascorbic Acid [Vitamin C] 500 mg PO DAILY 11/21/21 [History] Cetirizine HCl [Zyrtec] 10 mg PO DAILY 11/21/21 [History] Cholecalciferol (Vitamin D3) [Vitamin D3 (125 MCG = 5,000 IU)] 125 mcg PO DAILY 11/21/21 [History] Colchicin-Probenecid 0.5-500Mg [Colbenemid] 1 tab PO DAILY 11/21/21 [History] Multivitamins, Thera [Multivitamin (formulary)] 1 tab PO DAILY 11/21/21 [History] Testosterone Cypionate [Depo-Testosterone] 150 mg IM FR 11/21/21 [History] metFORMIN HCL ER [Glucophage XR] 1,000 mg PO DAILY 11/21/21 [History] Aspirin 81 mg PO DAILY 30 Days #30 tab 11/23/21 [Rx] Atorvastatin [Lipitor] 80 mg PO HS 30 Days #30 tab 11/23/21 [Rx] Colchicine [Colcrys] 0.6 mg PO DAILY 15 Days #15 each 11/23/21 [Rx] Metoprolol Tartrate [Lopressor] 25 mg PO BID 30 Days #60 tab 11/23/21 [Rx] Ticagrelor [Brilinta] 90 mg PO BID 30 Days #60 tab 11/23/21 [Rx] lisinopriL [Zestril] 10 mg PO DAILY 30 Days #30 tab 11/23/21 [Rx] Follow up Appointment(s)/Referral(s): Len Vigil DO [STAFF PHYSICIAN] - 1 Week Discharge Disposition: HOME SELF-CARE
[2021-11-23 12:50] VITALS: BP 102/69; PULSE 63
== END 2021-11-23 14:50 | disposition home or self-care (01) | DRG 247 ==
LOC: EC 00:54 → 2SICU 01:38 → 3SCARD 11-22 18:01
PROVIDERS: ADMIT Hospitalist; ATTEND Hospitalist
PROC: 027035Z Dilation of Coronary Artery, One Artery with Two Drug-eluting Intraluminal Devices, Percutaneous Approach (ICD-10-PCS; principal; 2021-11-21 01:08)
PROC: B2111ZZ Fluoroscopy of Multiple Coronary Arteries using Low Osmolar Contrast (ICD-10-PCS; principal; 2021-11-21 01:08)
PROC: B240ZZ3 Ultrasonography of Single Coronary Artery, Intravascular (ICD-10-PCS; 2021-11-21 01:08)
PROC: B2101ZZ Fluoroscopy of Single Coronary Artery using Low Osmolar Contrast (ICD-10-PCS; 2021-11-21 01:08)
PROC: 3E073PZ Introduction of Platelet Inhibitor into Coronary Artery, Percutaneous Approach (ICD-10-PCS; 2021-11-21 01:08)
PROC: 02703ZZ Dilation of Coronary Artery, One Artery, Percutaneous Approach (ICD-10-PCS; 2021-11-21 01:08)
DX: I21.11 ST elevation (STEMI) myocardial infarction involving right coronary artery (principal); E11.42 Type 2 diabetes mellitus with diabetic polyneuropathy; E11.51 Type 2 diabetes mellitus with diabetic peripheral angiopathy without gangrene; I48.91 Unspecified atrial fibrillation; J43.9 Emphysema, unspecified; T45.515A Adverse effect of anticoagulants, initial encounter; I24.0 Acute coronary thrombosis not resulting in myocardial infarction; Z92.82 Status post administration of tPA (rtPA) in a different facility within the last 24 hours prior to admission to current facility; Z28.310 Unvaccinated for COVID-19; E78.5 Hyperlipidemia, unspecified; I10 Essential (primary) hypertension; I25.10 Atherosclerotic heart disease of native coronary artery without angina pectoris; M10.9 Gout, unspecified; N40.0 Benign prostatic hyperplasia without lower urinary tract symptoms; G89.29 Other chronic pain; M54.9 Dorsalgia, unspecified; L40.9 Psoriasis, unspecified; M19.90 Unspecified osteoarthritis, unspecified site; R26.2 Difficulty in walking, not elsewhere classified; F10.11 Alcohol abuse, in remission; E66.9 Obesity, unspecified; Z68.34 Body mass index [BMI] 34.0-34.9, adult; Z79.84 Long term (current) use of oral hypoglycemic drugs; Z79.890 Hormone replacement therapy; Z79.899 Other long term (current) drug therapy; Z87.891 Personal history of nicotine dependence; Z95.820 Peripheral vascular angioplasty status with implants and grafts; Z71.3 Dietary counseling and surveillance; Z88.0 Allergy status to penicillin; Z82.49 Family history of ischemic heart disease and other diseases of the circulatory system; Z82.69 Family history of other diseases of the musculoskeletal system and connective tissue
CPT/HCPCS: 71045; 80048; 83036; 83735; 84484; 85025; 85610; 85730; 92920; 92978; 93306; 93454; 93458; 99291